=== PATIENT | female | born 1985 | race Caucasian/White ===

== ENCOUNTER → 2020-06-02 | Outpatient (CLI) | payer OTHER ==
[~2020-06-02] MED LIST: FLUT9.9S NAS; IBUP-1623 PO
[2020-06-02 16:39] LABS: BASOPHILS # (AUTO) 0.03 x10^3/uL (0-0.1); BASOPHILS % (AUTO) 0 % (0-1); EOSINOPHILS # (AUTO) 0.08 x10^3/uL (0-0.4); EOSINOPHILS % (AUTO) 1 % (1-7); LYMPHOCYTES # (AUTO) 1.74 x10^3/uL (1-3.4); LYMPHOCYTES % (AUTO) 23 % (22-44); MD NO; MEAN CORPUSCULAR HEMOGLOBIN 27.1 pg (27.0-34.8); MEAN CORPUSCULAR HGB CONC 32.2 g/dL (32.4-35.8); MEAN CORPUSCULAR VOLUME 84.1 fL (80-100); MEAN PLATELET VOLUME 8.6 fL (7.4-10.4); MONOCYTES # (AUTO) 0.42 x10^3/uL (0.2-0.8); MONOCYTES % (AUTO) 6 % (2-9); NEUTROPHILS # (AUTO) 5.26 x10^3/uL (1.8-6.8); NEUTROPHILS % (AUTO) 70 % (42-75); PLATELET COUNT 303 x10^3/uL (130-400); RED BLOOD COUNT 4.92 x10^6/uL (3.82-5.3); RED CELL DISTRIBUTION WIDTH 14.7 % (9.6-15.2)
[2020-06-02 16:45] LABS: ALBUMIN 4.2 g/dL (3.4-5.0); ANION GAP 5 mmol/L (5-15); CALCIUM 9.2 mg/dL (8.5-10.1); CHLORIDE 106 mmol/L (98-107); TOTAL IRON BINDING CAPACITY 337 mcg/dL (250-450)
[2020-06-02 17:12] LABS: % IRON SATURATION 11 % (20-55); ALANINE AMINOTRANSFERASE 41 U/L (12-78); ALKALINE PHOSPHATASE 79 U/L (45-117); BILIRUBIN,TOTAL 0.4 mg/dL (0.2-1.0); IRON LEVEL 37 mcg/dL (50-170); PREALBUMIN 24.3 mg/dL (20.0-40.0); TOTAL PROTEIN 7.8 g/dL (6.4-8.2); TRANSFERRIN 261 mg/dL (200-360)
== END | disposition home or self-care (01) ==
LOC: STAR 15:16
PROVIDERS: ATTEND Thoracic Surgery (Cardiothoracic Vascular Surgery)
DX: Z01.818 Encounter for other preprocedural examination (principal)
CPT/HCPCS: 36415; 71046; 80053; 82306; 82607; 82728; 82746; 83540; 83550; 83970; 84134; 84425; 84466; 85025; 87635; 93005

== ENCOUNTER 2020-06-09 06:21 | Inpatient (IN) | payer OTHER ==
[~2020-06-09] VITALS: Ht 160 cm; Wt 108.0 kg
[2020-06-09] MEDS ORDERED: EPINEPHRINE 1 MG/ML, 1ML ONE (06:32)
[2020-06-09] MEDS ORDERED: BUPIVACAINE/PF 0.5% ONE (06:32)
[2020-06-09] MEDS ORDERED: LACTATED RINGERS 1,000 ML IV SCH ×2 (06:55→22:26)
[2020-06-09] MEDS ORDERED: LIDOCAINE-MPF 1%, 2ML INFIL ONE (07:00)
[2020-06-09] MEDS ORDERED: CHLORHEXIDINE 15 ML UDC MM ONE (07:00)
[2020-06-09 07:18] LABS: HCG UR SG 1.026 (1.003-1.030)
[2020-06-09] MEDS ORDERED: ACETAMINOPHEN 100 ML IVPB ONE (07:30)
[2020-06-09] MEDS ORDERED: SCOPOLAMINE 1MG PATCH TD ONE (07:30)
[2020-06-09 07:52] LABS: CHOL/HDL RATIO 4.6; LDL/HDL RATIO 2.6 (0.5-3.0)
[2020-06-09] MEDS ORDERED: MIDAZOLAM 1 MG/ML, 2ML ONE (07:56)
[2020-06-09] MEDS ORDERED: FENTANYL PF 100 MCG/2ML ONE ×3 (07:56→09:35)
[2020-06-09] MEDS ORDERED: PROMETHAZINE 25 MG/ML, 1ML IVPush PRN (08:30)
[2020-06-09] MEDS ORDERED: HYDROmorphone 1 MG/ML, 1ML INJ IVPush PRN (08:30)
[2020-06-09] MEDS ORDERED: LORazepam 2 MG/ML, 1ML IVPush PRN (08:30)
[2020-06-09] MEDS ORDERED: MEPERIDINE/PF 25MG/0.5ML IVPush PRN (08:30)
[2020-06-09] MEDS ORDERED: OXYcodone 5 MG/5 ML ORAL.SOL UDC PO PRN (08:30)
[2020-06-09] MEDS ORDERED: METHOCARBAMOL 1,000 MG in DEXTROSE 5% 100 ML IV PRN (08:30)
[2020-06-09] MEDS ORDERED: SUGAMMADEX 200 MG/2 ML IVPush ONE (08:30)
[2020-06-09] MEDS ORDERED: hydrALAzine 20 MG/ML, 1ML IV PRN (08:30)
[2020-06-09] MEDS ORDERED: LABETALOL 5MG/ML, 20ML IV PRN (08:30)
[2020-06-09] MEDS ORDERED: ALBUTEROL SULFATE 2.5 MG/3 ML NPPB PRN (08:30)
[2020-06-09] MEDS ORDERED: NEOSTIGMINE 1 MG/ML, 10ML ONE (09:17)
[2020-06-09] MEDS ORDERED: GLYCOPYRROLATE 0.2MG/1ML, 5ML ONE (09:17)
[2020-06-09] MEDS ORDERED: PROPOFOL 10 MG/ML, 20ML ONE (09:17)
[2020-06-09] MEDS ORDERED: CEFAZOLIN 1,000 MG ONE (09:17)
[2020-06-09] MEDS ORDERED: DEXAMETHASONE 4 MG/ML, 1ML ONE (09:17)
[2020-06-09] MEDS ORDERED: SUCCINYLCHOLINE 20 MG/ML, 10ML ONE (09:17)
[2020-06-09] MEDS ORDERED: ONDANSETRON 2MG/ML, 2ML ONE (09:17)
[2020-06-09] MEDS ORDERED: ROCURONIUM 10MG/ML,5ML ONE (09:17)
[2020-06-09] MEDS ORDERED: DIPHENHYDRAMINE 50 MG/ML, 1ML IV PRN (09:30)
[2020-06-09] MEDS ORDERED: PHENOL THROAT SPRAY BOTTLE MM PRN (09:30)
[2020-06-09] MEDS ORDERED: HYDROmorphone 1 MG/ML, 1ML INJ IV PRN (09:30)
[2020-06-09] MEDS ORDERED: hydrALAzine 20 MG/ML, 1ML IVPush PRN (09:30)
[2020-06-09] MEDS ORDERED: ENALAPRILAT 1.25 MG/ML, 2ML IV PRN (09:30)
[2020-06-09] MEDS ORDERED: PROMETHAZINE 12.5 MG SUPP PR PRN (09:30)
[2020-06-09] MEDS ORDERED: LORazepam 2 MG/ML, 1ML IV PRN (09:30)
[2020-06-09] MEDS ORDERED: PROMETHAZINE 25 MG/ML, 1ML ONE (09:31)
[2020-06-09] MEDS ORDERED: OXYcodone 5 MG/5 ML ORAL.SOL UDC ONE (09:35)
[2020-06-09] MEDS: FENTANYL PF 100 MCG/2ML IV PRN ×2 (09:40→09:50)
[2020-06-09] MEDS: FAMOTIDINE 20 MG/2 ML IVPush SCH ×2 (10:15→20:16)
[2020-06-09] MEDS ORDERED: FAMOTIDINE 20 MG/2 ML ONE (10:17)
[2020-06-09] MEDS ORDERED: KETOROLAC 30 MG/1 ML ONE (10:34)
[2020-06-09 10:55] VITALS: BP 140/86
[2020-06-09 12:00] VITALS: BP 125/84
[2020-06-09] MEDS: ACETAMINOPHEN 100 ML IVPB SCH ×2 (13:04→20:15)
[2020-06-09] MEDS: ONDANSETRON 2MG/ML, 2ML IVPush PRN ×2 (13:04→20:15)
[2020-06-09] MEDS ORDERED: KETOROLAC 30 MG/1 ML IVPush PRN (16:00)
[2020-06-09] MEDS: PROMETHAZINE 25 MG/ML, 1ML IM PRN (16:00)
[2020-06-09] MEDS: LACTATED RINGERS 1,000 ML IV SCH (16:03)
[2020-06-09] MEDS ORDERED: HYDROcodone/APAP 7.5-325MG/15ML UDC PO PRN (18:00)
[2020-06-09 20:07] VITALS: BP 133/81
[2020-06-10] MEDS: LACTATED RINGERS 1,000 ML IV SCH (00:10)
[2020-06-10 01:49] VITALS: BP 120/76
[2020-06-10] MEDS: ACETAMINOPHEN 100 ML IVPB SCH (02:36)
[2020-06-10] MEDS: PROMETHAZINE 25 MG/ML, 1ML IM PRN (02:40)
[2020-06-10 04:55] LABS: BASOPHILS % (AUTO) 0 % (0-1); EOSINOPHILS % (AUTO) 0 % (1-7); LYMPHOCYTES # (AUTO) 1.13 x10^3/uL (1-3.4); LYMPHOCYTES % (AUTO) 9 % (22-44); MD NO; MEAN CORPUSCULAR HGB CONC 32.2 g/dL (32.4-35.8); MEAN CORPUSCULAR VOLUME 83.8 fL (80-100); MEAN PLATELET VOLUME 8.3 fL (7.4-10.4); MONOCYTES # (AUTO) 0.93 x10^3/uL (0.2-0.8); MONOCYTES % (AUTO) 7 % (2-9); NEUTROPHILS # (AUTO) 10.51 x10^3/uL (1.8-6.8); NEUTROPHILS % (AUTO) 84 % (42-75); PLATELET COUNT 299 x10^3/uL (130-400); RED BLOOD COUNT 4.59 x10^6/uL (3.82-5.3); RED CELL DISTRIBUTION WIDTH 14.7 % (9.6-15.2)
[2020-06-10 05:08] LABS: CHLORIDE 109 mmol/L (98-107)
[2020-06-10 05:17] LABS: ALBUMIN 3.7 g/dL (3.4-5.0); ANION GAP 11 mmol/L (5-15); CALCIUM 8.9 mg/dL (8.5-10.1); CREATININE 0.61 mg/dL (0.55-1.02)
[2020-06-10] MEDS: ONDANSETRON 2MG/ML, 2ML IVPush PRN (08:03)
[2020-06-10] MEDS: FAMOTIDINE 20 MG/2 ML IVPush SCH (08:03)
[2020-06-10] MEDS ORDERED: ENOXAPARIN 40 MG/0.4 ML SQ SCH (09:00)
[2020-06-10] MEDS ORDERED: ENOXAPARIN 30 MG/0.3 ML SQ SCH (09:00)
[2020-06-10 09:15] VITALS: BP 136/83
== END 2020-06-10 12:10 | disposition home or self-care (01) | DRG 619 ==
LOC: ORIP 06:21 → 4NE 10:53 → DCLOUNGE 06-10 11:59
PROVIDERS: ADMIT Thoracic Surgery (Cardiothoracic Vascular Surgery); ATTEND Thoracic Surgery (Cardiothoracic Vascular Surgery)
PROC: 0DB64Z3 Excision of Stomach, Percutaneous Endoscopic Approach, Vertical (ICD-10-PCS; principal; 2020-06-09 08:30)
DX: E66.01 Morbid (severe) obesity due to excess calories (principal); E43 Unspecified severe protein-calorie malnutrition; E78.00 Pure hypercholesterolemia, unspecified; Z68.41 Body mass index [BMI] 40.0-44.9, adult
CPT/HCPCS: 36415; J3490; S0020; 80048; 80061; 81025; 82040; 85025; G0378; J0131; J0171; J0690; J1100; J1170; J1650; J2250; J2405; J2550; J2704; J2710; J3010; J0330; J2060; J7120

== ENCOUNTER → 2020-08-26 | Outpatient (CLI) | payer OTHER | END | disposition home or self-care (01) | LOC: CFH 15:48 | PROVIDERS: ATTEND Physician Assistant | DX: N63.11 Unspecified lump in the right breast, upper outer quadrant (principal) | CPT/HCPCS: 76642; 77066; G0279 ==